=== PATIENT | female | born 1995 | race African-American/Black ===

== ENCOUNTER 2018-04-14 09:56 | Emergency (ER) | payer OTHER ==
[2018-04-14] MEDS ORDERED: DICYCLOMINE HCL 20 MG TABLET PO ONE (11:45)
--- NOTE | 2018-04-14 11:45 | ER Document Report ---
ED Medical Screen (RME) - General Chief Complaint: Abdominal Pain Stated Complaint: ABDOMINAL PAIN Time Seen by Provider: 04/14/18 11:35 Notes: 23-year-old female patient reports a 3-year history of lower abdominal pain, cramps, bloating, and occasional diarrhea. States she has been seen in the emergency room at [facility] multiple times and never been told what is wrong. She saw an [employer] doctor that told her it may be polycystic ovaries. She denies ever being told that it is most likely irritable bowel syndrome. I have greeted and performed a rapid initial assessment of this patient. A comprehensive ED assessment and evaluation of the patient, analysis of test results and completion of the medical decision making process will be conducted by additional ED providers. TRAVEL OUTSIDE OF THE [place] IN LAST 30 DAYS: No - Related Data Allergies/Adverse Reactions: No Known Allergies Allergy (Unverified 07/04/15 06:22) Past Medical History - Social History Chew tobacco use (# tins/day): No Frequency of alcohol use: None Drug Abuse: None Renal/ Medical History: Denies: Hx Peritoneal Dialysis Psychiatric Medical History: Reports: Hx Bipolar Disorder Physical Exam - Vital signs Vitals: Temp Pulse Resp BP Pulse Ox 98.3 F 108 H 18 142/75 H 98 04/14/18 10:21 04/14/18 10:21 04/14/18 10:21 04/14/18 10:21 04/14/18 10:21 Course - Vital Signs Vital signs: Temp Pulse Resp BP Pulse Ox 98.3 F 108 H 18 142/75 H 98 04/14/18 10:21 04/14/18 10:21 04/14/18 10:21 04/14/18 10:21 04/14/18 10:21
[2018-04-14 12:32] LABS: ABSOLUTE EOSINOPHILS # (AUTO) 0.3 10^3/uL (0.0-0.6); ABSOLUTE LYMPHOCYTES (AUTO) 2.2 10^3/uL (0.5-4.7); ABSOLUTE MONOCYTES (AUTO) 0.7 10^3/uL (0.1-1.4); ABSOLUTE NEUT (AUTO) 7.4 10^3/uL (1.7-8.2); APPEARANCE,URINE SLIGHTLY-CLOUDY; BASOPHILS % (AUTO) 0.3 % (0-2); BILIRUBIN,URINE NEGATIVE (NEGATIVE); COLOR,URINE YELLOW; EOSINOPHILS % (AUTO) 2.8 % (0-6); GLUCOSE, URINE 50 mg/dL (NEGATIVE); HEMATOCRIT 38.2 % (36.0-47.0); HEMOGLOBIN 12.6 g/dL (12.0-15.5); KETONES,URINE NEGATIVE (NEGATIVE); LEUKOCYTE ESTERASE,URINE MODERATE (NEGATIVE); LYMPHOCYTES % (AUTO) 20.7 % (13-45); MEAN CORPUSCULAR HEMOGLOBIN 27.4 pg (27.0-33.4); MEAN CORPUSCULAR HGB CONC 33.1 g/dL (32.0-36.0); MEAN CORPUSCULAR VOLUME 83 fl (80-97); MONOCYTES % (AUTO) 6.5 % (3-13); NITRITE,URINE NEGATIVE (NEGATIVE); PLATELET COUNT 323 10^3/uL (150-450); PROTEIN,URINE NEGATIVE (NEGATIVE); RED BLOOD COUNT 4.61 10^6/uL (3.72-5.28); SEGMENTED NEUTROPHILS % (AUTO) 69.7 % (42-78); TOTAL CELLS COUNTED % (AUTO) 100 %; URINE SPECIFIC GRAVITY 1.014; UROBILINOGEN,URINE NEGATIVE mg/dL (<2.0); WHITE BLOOD COUNT 10.6 10^3/uL (4.0-10.5)
[2018-04-14 12:56] LABS: ALANINE AMINOTRANSFERASE 37 U/L (9-52); ALBUMIN 4.4 g/dL (3.5-5.0); ALKALINE PHOSPHATASE 95 U/L (38-126); ANION GAP 8 (5-19); ASPARTATE AMINO TRANSFERASE 26 U/L (14-36); BILIRUBIN,DIRECT 0.2 mg/dL (0.0-0.4); BILIRUBIN,TOTAL 0.3 mg/dL (0.2-1.3); BLOOD UREA NITROGEN 13 mg/dL (7-20); CALCIUM 9.5 mg/dL (8.4-10.2); CARBON DIOXIDE 31 mmol/L (22-30); CHLORIDE 104 mmol/L (98-107); GLUCOSE 133 mg/dL (75-110); POTASSIUM 4.1 mmol/L (3.6-5.0); SODIUM 143.4 mmol/L (137-145); TOTAL PROTEIN 7.3 g/dL (6.3-8.2)
--- NOTE | 2018-04-14 13:50 | ER Document Report ---
ED GI/ - General Chief Complaint: Abdominal Pain Stated Complaint: ABDOMINAL PAIN Time Seen by Provider: 04/14/18 11:35 Information source: Patient Notes: Patient is a 23-year-old female who states that she has had some intermittent upper abdominal discomfort for a few years. She states worse over the last 6 months. She denies any radiation. She states that it is intermittent slightly exacerbated by food. She states nausea without vomiting or fevers. She states she has not had a menstrual period in greater than 1 year but is not sexually active. She denies any dysuria or vaginal discharge. She states she was told in the past that she had "irritable bowel syndrome". TRAVEL OUTSIDE OF THE [place] IN LAST 30 DAYS: No - HPI Patient complains to provider of: Other - See above Onset: Other Timing/Duration: Gradual Quality of pain: Achy Severity at maximum: Mild Severity in ED: Mild Pain Level: 1 Location: Other - See above Vaginal bleeding (Compared to normal period): None Associated symptoms: Other - See above Exacerbated by: Denies Relieved by: Denies Similar symptoms previously: No Recently seen / treated by doctor: No - Related Data Allergies/Adverse Reactions: No Known Allergies Allergy (Unverified 07/04/15 06:22) Past Medical History - Social History Smoking Status: Never Smoker Chew tobacco use (# tins/day): No Frequency of alcohol use: None Drug Abuse: None Family History: Reviewed & Not Pertinent, Other - unknown Patient has suicidal ideation: No Patient has homicidal ideation: No Renal/ Medical History: Denies: Hx Peritoneal Dialysis Psychiatric Medical History: Reports: Hx Bipolar Disorder Review of Systems - Review of Systems Constitutional: denies: Fever EENT: denies: Eye discharge, Nose discharge Cardiovascular: denies: Chest pain Respiratory: denies: Short of breath Gastrointestinal: denies: Vomiting Genitourinary: denies: Dysuria Musculoskeletal: denies: Leg swelling Skin: denies: Rash Neurological/Psychological: Other - no slurred speech -: Yes All other systems reviewed and negative Physical Exam - Vital signs Vitals: Temp Pulse Resp BP Pulse Ox 98.3 F 108 H 18 142/75 H 98 04/14/18 10:21 04/14/18 10:21 04/14/18 10:21 04/14/18 10:21 04/14/18 10:21 Notes: Reviewed vital signs and nursing note as charted by RN. CONSTITUTIONAL: Alert and oriented and responds appropriately to questions. Well-appearing; well-nourished HEAD: Normocephalic; atraumatic EYES: Sclerae non-icteric ENT: Normal nose; no rhinorrhea; moist mucous membranes; pharynx without lesions noted NECK: Supple without meningismus; non-tender; no cervical lymphadenopathy, no masses CARD: Regular rate and rhythm; no murmurs; symmetric distal pulses RESP: Normal chest excursion without splinting or tachypnea; breath sounds clear and equal bilaterally ABD/GI: Normal bowel sounds; non-distended; soft, mildly tender to palpation without rebound or guarding to the epigastric region. No lower abdominal tenderness at this time BACK: The back appears normal and is non-tender to palpation EXT: Normal ROM in all joints; non-tender to palpation; no edema SKIN: No acute lesions noted NEURO: CN 2-12 intact; 5/5 bilateral upper and lower extremity strength with sensation intact to light touch PSYCH: The patient's mood and manner are appropriate. Grooming and personal hygi skip are appropriate. Course - Re-evaluation Re-evalutation: 04/14/18 13:51 Given the above history and physical examination with the length of symptomatology, with no lower abdominal symptoms at this moment, I do believe ovarian torsion or pathology to be unlikely at this moment. I will obtain basic labs, liver panel and lipase, and obtain a right upper quadrant ultrasound as well as a pelvic examination. 04/14/18 16:46 Initial labs as recorded. Urine analysis as recorded. is negative. Ultrasound shows no obvious gallbladder pathology. No change in exam. On pelvic examination the patient has no obvious external or internal lesions. No cervical motion tenderness or adnexal masses or tenderness. 04/14/18 17:47 On repeat examination, patient's pain is improved. Vital signs are stable. Wet prep as recorded. Patient refuses any recent repeat swabbing. GC/Chlamydia are pending. Patient will be discharged home with strict return precautions, cultures pending, and started on a course of Keflex. - Vital Signs Vital signs: Temp Pulse Resp BP Pulse Ox 98.3 F 108 H 18 142/75 H 98 04/14/18 10:21 04/14/18 10:21 04/14/18 10:21 04/14/18 10:21 04/14/18 10:21 - Laboratory Result Diagrams: 04/14/18 11:57 04/14/18 11:57 Laboratory results interpreted by me: 04/14/18 04/14/18 04/14/18 11:57 11:57 11:57 WBC 10.6 H RDW 15.0 H Carbon Dioxide 31 H Glucose 133 H Urine Glucose (UA) 50 H Ur Leukocyte Esterase MODERATE H Discharge - Discharge Clinical Impression: Abdominal pain Qualifiers: Abdominal location: unspecified location Qualified Code(s): R10.9 - Unspecified abdominal pain UTI (urinary tract infection) Qualifiers: Urinary tract infection type: acute cystitis Hematuria presence: without hematuria Qualified Code(s): N30.00 - Acute cystitis without hematuria Condition: Good Disposition: HOME, SELF-CARE Additional Instructions: Come back immediately for any return of pain, worsening pain, change in location or quality of pain, fevers or vomiting, or any other acute problems. Please make sure that she follow-up with your primary care physician for reassessment and for the analysis of the urine culture. Prescriptions: Cephalexin Monohydrate [Keflex 500 mg Capsule] 500 mg PO Q6H 5 Days capsule
--- NOTE | 2018-04-14 15:41 | RADIOLOGY REPORT (SQ) ---
EXAM DESCRIPTION: U/S ABDOMEN LIMITED W/O DOP COMPLETED DATE/TIME: 04/14/2018 3:12 pm REASON FOR STUDY: 3hw, epigastric and RUQ pain COMPARISON: None. TECHNIQUE: Dynamic and static grayscale images acquired of the abdomen and recorded on PACS. Additio nal selected color Doppler and spectral images recorded. LIMITATIONS: Large body habitus, limited acoustic window FINDINGS: PANCREAS: Not visualized LIVER: Diffusely echogenic and difficult to penetrate with the ultrasound energy from fatty infiltrat ion LIVER VASCULATURE: Normal directional flow of the main portal vein and hepatic veins. GALLBLADDER: Very difficult to visualize. No gross gallstones. No gross gallbladder wall thickening or pericholecystic fluid ULTRASOUND-DETECTED CHATMAN'S SIGN: Negative. INTRAHEPATIC DUCTS AND COMMON DUCT: Not well seen INFERIOR VENA CAVA: Not visualized AORTA: Not visualized RIGHT KIDNEY: Normal size. Normal echogenicity. No solid or suspicious masses. No hydronephrosis. No calcifications. PERITONEAL AND RIGHT PLEURAL SPACE: No ascites or effusions. OTHER: No other significant findings. IMPRESSION: Very limited study due to patient body habitus. No gross evidence of gallstones TECHNICAL DOCUMENTATION: JOB ID: [id number] [employer]- All Rights Reserved Reading location - IP/workstation name: [email or web address]
[2018-04-14 16:54] LABS: BACTERIA (WET MOUNT) 3+ BACTERIA SEEN; EPITHELIALS (WET MOUNT) 3+ EPITHELIALS SEEN; RBCS (WET MOUNT) RARE RBCS SEEN; T.VAGINALIS (WET MOUNT) COULD NOT PERFORM; WBCS (WET MOUNT) 1+ WBCS SEEN; YEAST (WET MOUNT) NO YEAST SEEN
[2018-04-14] MEDS ORDERED: CEPHALEXIN 500 MG CAPSULE PO ONE (17:48)
[2018-04-14 18:04] VITALS: BP 134/85
[2018-04-14 18:24] LABS: CHLAM PCR NOT DETECTED (NOT DETECT); GON PCR NOT DETECTED (NOT DETECT)
== END 2018-04-14 18:03 | disposition home or self-care (01) ==
LOC: ER 09:56
DX: N30.00 Acute cystitis without hematuria (principal); R10.10 Upper abdominal pain, unspecified; R10.813 Right lower quadrant abdominal tenderness; R11.0 Nausea
CPT/HCPCS: 99284; 36415; 87086; 87210; 84703; 85025; 80053; 81001; 87491; 87591; 76705; J3490

== ENCOUNTER 2018-07-13 15:23 | Emergency (ER) | payer MEDICAID ==
[2018-07-13 16:39] VITALS: BP 124/82
[2018-07-13] MEDS ORDERED: NORMAL SALINE 1000 ML 1,000 ML IV ONE (18:20)
[2018-07-13] MEDS ORDERED: ACETAMINOPHEN 325 MG TABLET PO ONE (18:20)
[2018-07-13] MEDS ORDERED: DIPHENHYDRAMINE HCL 50 MG/ML VIAL IV ONE (18:20)
[2018-07-13] MEDS ORDERED: METOCLOPRAMIDE HCL INJ/PF 10 MG/2 ML SDV IV ONE (18:20)
--- NOTE | 2018-07-13 18:30 | ER Document Report ---
ED General - General Chief Complaint: Headache Stated Complaint: NAUSEA Time Seen by Provider: 07/13/18 17:19 Mode of Arrival: Ambulatory Information source: Patient TRAVEL OUTSIDE OF THE [place] IN LAST 30 DAYS: No - HPI Patient complains to provider of: Headaches off and on, nausea, stomachache Onset: Other - Last couple of days Onset/Duration: Constant Quality of pain: Pressure, Throbbing Severity: Severe Pain Level: 4 Associated symptoms: Nausea. denies: Chills, Diarrhea, Fever, Vomiting Exacerbated by: Denies Relieved by: Denies Similar symptoms previously: No Recently seen / treated by doctor: No Notes: 23-year-old -[place] female coming in today with complaints of nausea, frontal headaches, and stomach aches. She recently diagnosed with diabetes type 2. She has been out of her metformin for couple weeks. She thinks her sugars are the cause of her symptoms. She is not throwing up. She is not short of breath. - Related Data Allergies/Adverse Reactions: No Known Allergies Allergy (Unverified 07/04/15 06:22) Past Medical History - General Information source: Patient - Social History Smoking Status: Never Smoker Chew tobacco use (# tins/day): No Frequency of alcohol use: None Drug Abuse: None Family History: Reviewed & Not Pertinent, Other - unknown Patient has suicidal ideation: No Patient has homicidal ideation: No Renal/ Medical History: Denies: Hx Peritoneal Dialysis Psychiatric Medical History: Reports: Hx Bipolar Disorder Review of Systems - Review of Systems Notes: Constitutional: No fevers. No chills. EENT: No eye redness. No eye pain. No ear pain. No sore throat. Cardiovascular: No chest pain. No palpitations. Respiratory: No cough. No shortness of breath. No respiratory distress. Gastrointestinal: Positive for nausea Genitourinary: Atraumatic. No lesions. No pain. No discharge. Musculoskeletal: Atraumatic. No swelling. No deformities. Skin: No rash or lesions. Lymphatic: No swollen lymph nodes. Neurologic: Positive for headache Psychiatric: No suicidal or homicidal ideation. Physical Exam - Vital signs Vitals: Temp Pulse Resp BP Pulse Ox 97.9 F 117 H 16 124/82 95 07/13/18 16:37 07/13/18 16:37 07/13/18 16:37 07/13/18 16:37 07/13/18 16:37 - Notes Notes: General: Well-developed, well-nourished. In no acute distress. Non-toxic appearing. Cardiac: Well-perfused. Regular rate and rhythm. No murmurs, rubs, or gallops. Pulmonary: No respiratory distress. No cyanosis. Bilateral lung fiels are clear to auscultation. Abdominal: Non-distended. Non-rigid. Bowels sounds are present in all four quadrants. No guarding or rebound. HEENT: Head is atraumatic. Conjunctivae not reddened. No tearing. PERRL. EOMI. Orbits atraumatic. No periorbital swelling or erythema. Oropharynx is without erythema, swelling, or exudates. Neck: Supple. No adenopathy. No meningismus. Dermatologic: Warm with good turgor. No rash. Atraumatic. Chest: Atraumatic. No chest wall tenderness to palpation. Musculoskeletal: Moves all extremities well. No range of motion deficits. no muscular or joint tenderness. No paraspinal muscle tenderness. no midline spinal tenderness or step-off. Genitourinary: Examination deferred Neurologic: No gross neurologic deficits. Psychiatric: Normal mood. Course - Re-evaluation Re-evalutation: Nursing staff has just placed the IV. Patient is now stating that there are pressing reasons for her to leave. She will not give any specific explanation. She notes that she is not unhappy or dissatisfied with her care but that she just "has to GO." Patient is made aware that she can return at any time she wishes. Unfortunately I was happened to check her electrolytes especially her sugar and check her kidney functions. She will sign the appropriate paperwork a nd will leave AMA. Kye Coma Scale 15 out of 15 - Vital Signs Vital signs: Temp Pulse Resp BP Pulse Ox 97.9 F 117 H 16 124/82 95 07/13/18 16:37 07/13/18 16:37 07/13/18 16:37 07/13/18 16:37 07/13/18 16:37 - Laboratory Result Diagrams: 07/13/18 18:40 07/13/18 18:40 Laboratory results interpreted by me: 07/13/18 18:40 WBC 16.5 H MCH 26.8 L RDW 14.7 H Absolute Neutrophils 11.2 H Discharge - Discharge Clinical Impression: History of diabetes mellitus Headache Qualifiers: Headache type: unspecified Headache chronicity pattern: unspecified pattern Intractability: not intractable Qualified Code(s): R51 - Headache Condition: Good Disposition: AGAINST MEDICAL ADVICE
[2018-07-13 18:51] LABS: ABSOLUTE BASOPHILS # (AUTO) 0.1 10^3/uL (0.0-0.2); ABSOLUTE EOSINOPHILS # (AUTO) 0.3 10^3/uL (0.0-0.6); ABSOLUTE LYMPHOCYTES (AUTO) 3.8 10^3/uL (0.5-4.7); ABSOLUTE NEUT (AUTO) 11.2 10^3/uL (1.7-8.2); BASOPHILS % (AUTO) 0.8 % (0-2); EOSINOPHILS % (AUTO) 1.8 % (0-6); HEMATOCRIT 39.9 % (36.0-47.0); HEMOGLOBIN 12.9 g/dL (12.0-15.5); LYMPHOCYTES % (AUTO) 22.9 % (13-45); MEAN CORPUSCULAR HEMOGLOBIN 26.8 pg (27.0-33.4); MEAN CORPUSCULAR HGB CONC 32.4 g/dL (32.0-36.0); MEAN CORPUSCULAR VOLUME 83 fl (80-97); MONOCYTES % (AUTO) 6.3 % (3-13); PLATELET COUNT 376 10^3/uL (150-450); RED BLOOD COUNT 4.82 10^6/uL (3.72-5.28); RED CELL DISTRIBUTION WIDTH 14.7 % (11.5-14.0); SEGMENTED NEUTROPHILS % (AUTO) 68.2 % (42-78); TOTAL CELLS COUNTED % (AUTO) 100 %; WHITE BLOOD COUNT 16.5 10^3/uL (4.0-10.5)
[2018-07-13 18:55] LABS: AMORPHOUS SEDIMENT,URINE TRACE /HPF; APPEARANCE,URINE SLIGHTLY-CLOUDY; BILIRUBIN,URINE NEGATIVE (NEGATIVE); COLOR,URINE YELLOW; GLUCOSE, URINE NEGATIVE (NEGATIVE); KETONES,URINE NEGATIVE (NEGATIVE); LEUKOCYTE ESTERASE,URINE NEGATIVE (NEGATIVE); NITRITE,URINE NEGATIVE (NEGATIVE); PROTEIN,URINE NEGATIVE (NEGATIVE); URINE SPECIFIC GRAVITY 1.017; UROBILINOGEN,URINE NEGATIVE mg/dL (<2.0)
[2018-07-13 19:14] LABS: ALANINE AMINOTRANSFERASE 37 U/L (9-52); ALBUMIN 4.4 g/dL (3.5-5.0); ALKALINE PHOSPHATASE 99 U/L (38-126); ANION GAP 12 (5-19); ASPARTATE AMINO TRANSFERASE 27 U/L (14-36); BILIRUBIN,DIRECT 0.3 mg/dL (0.0-0.4); BILIRUBIN,TOTAL 0.7 mg/dL (0.2-1.3); BLOOD UREA NITROGEN 12 mg/dL (7-20); CALCIUM 9.9 mg/dL (8.4-10.2); CARBON DIOXIDE 30 mmol/L (22-30); CHLORIDE 99 mmol/L (98-107); GLUCOSE 77 mg/dL (75-110); POTASSIUM 4.7 mmol/L (3.6-5.0); TOTAL PROTEIN 7.8 g/dL (6.3-8.2)
== END 2018-07-13 18:53 | disposition left against medical advice (07) ==
LOC: ER 15:23
DX: R51 Headache (principal); R11.0 Nausea; R10.9 Unspecified abdominal pain; E11.9 Type 2 diabetes mellitus without complications; Z79.84 Long term (current) use of oral hypoglycemic drugs
CPT/HCPCS: 99284; 96374; 96375; 36415; 85025; 81025; 80053; 81001; J3490; J1200; J2765; J7030

== ENCOUNTER 2018-07-27 23:43 | Emergency (ER) | payer MEDICAID ==
[2018-07-28] MEDS ORDERED: NORMAL SALINE 1000 ML 1,000 ML IV ONE (03:43)
--- NOTE | 2018-07-28 03:58 | ER Document Report ---
ED General - General Chief Complaint: Headache Stated Complaint: HEADACHE Time Seen by Provider: 07/28/18 03:29 Notes: Patient is a 23-year-old female that comes to the emergency department for general complaints. She states she had a headache earlier but this almost resolved, she states she has been achy over her body including a slight dis comfort in her chest, she states she also thinks that she is dehydrated but did not drink much today, and feels like she "needs fluids". She reports a history of type 2 diabetes, on metformin, also has a history of bipolar disorder. TRAVEL OUTSIDE OF THE [place] IN LAST 30 DAYS: No - Related Data Allergies/Adverse Reactions: No Known Allergies Allergy (Unverified 07/04/15 06:22) Past Medical History - General Information source: Patient - Social History Smoking Status: Never Smoker Frequency of alcohol use: None Drug Abuse: None Lives with: Family Family History: Reviewed & Not Pertinent, Other - unknown Renal/ Medical History: Denies: Hx Peritoneal Dialysis Psychiatric Medical History: Reports: Hx Bipolar Disorder - Immunizations Immunizations up to date: Yes Hx Diphtheria, Pertussis, Tetanus Vaccination: Yes Review of Systems - Review of Systems Constitutional: See HPI EENT: No symptoms reported Cardiovascular: See HPI Respiratory: See HPI Gastrointestinal: No symptoms reported Genitourinary: No symptoms reported Female Genitourinary: No symptoms reported Musculoskeletal: See HPI Skin: No symptoms reported Hematologic/Lymphatic: No symptoms reported Neurological/Psychological: No symptoms reported Physical Exam - Vital signs Vitals: Temp Pulse Resp BP Pulse Ox 98.9 F 106 H 16 143/74 H 97 07/28/18 00:00 07/28/18 00:00 07/28/18 00:00 07/28/18 00:00 07/28/18 00:00 - Notes Notes: GENERAL: Sleeping but easily aroused HEAD: Normocephalic, atraumatic. EYES: Pupils equal, round, and reactive to light. Extraocular movements intact. ENT: Oral mucosa dry, tongue midline. Oropharynx unremarkable. Airway patent. NECK: Full range of motion. Supple. Trachea midline. LUNGS: Clear to auscultation bilaterally, no wheezes, rales, or rhonchi. No re spiratory distress. HEART: Borderline tachycardia, normal rhythm, no murmur ABDOMEN: Soft, non-tender. Non-distended. Bowel sounds present in all 4 quadrants. GENITOURINARY: Deferred EXTREMITIES: Moves all 4 extremities spontaneously. No edema, normal radial and dorsalis pedis pulses bilaterally. No cyanosis. BACK: no cervical, thoracic, lumbar midline tenderness. No saddle anesthesia, normal distal neurovascular exam. NEUROLOGICAL: Alert and oriented x3. Normal speech. cranial nerves II through XII grossly intact. PSYCH: Normal affect, normal mood. SKIN: Warm, dry, normal turgor. No rashes or lesions noted. Course - Re-evaluation Re-evalutation: Patient sleeping but easily aroused. She has very vague complaints. Has dry mucous membranes, complaining that she feels dry, was borderline tachycardic. This resolved after IV fluids. EKG and chest x-ray unremarkable. CBC, chemistry unremarkable. hCG is negative. Patient with no concerning findings on physical exam. She has very vague complaints, no current headache, no current pain other than feeling tired and achy. Could be viral, I do not suspect pulmonary embolism, infection, concerning headache. On reevaluation patient has had IV fluids, states she is ready to go home. Discussed follow-up and return precautions. Patient states understanding and agreement. - Vital Signs Vital signs: Temp Pulse Resp BP Pulse Ox 97.6 F 89 19 142/90 H 95 07/28/18 06:10 07/28/18 06:10 07/28/18 06:10 07/28/18 06:10 07/28/18 06:10 - Laboratory Result Diagrams: 07/28/18 04:02 07/28/18 04:02 Laboratory results interpreted by me: 07/28/18 07/28/18 04:02 04:02 WBC 12.3 H Hgb 11.7 L MCH 26.3 L MCHC 31.7 L RDW 14.8 H Glucose 126 H - EKG Interpretation by Me Additional EKG results interpreted by me: EKG shows sinus rhythm at a rate of 96, no T wave inversions or ST segment changes in consecutive leads, QTC is 476, ME interval is 164. Discharge - Discharge Clinical Impression: Body aches, Tiredness Headache Qualifiers: Headache type: unspecified Headache chronicity pattern: acute headache Intracta bility: not intractable Qualified Code(s): R51 - Headache Condition: Stable Disposition: HOME, SELF-CARE Additional Instructions: Your work-up does not show any concerning findings. You have been rehydrated. Rest, take [id number] anti-inflammatory such as ibuprofen or naproxen for body aches. It is possible you have a viral syndrome which takes time to resolve. Follow-up with primary care. Return if you worsen including difficulty breathing, vomiting, fever, passing out, or any other concerning or worsening symptoms.
[2018-07-28 04:18] LABS: ABSOLUTE BASOPHILS # (AUTO) 0.1 10^3/uL (0.0-0.2); ABSOLUTE EOSINOPHILS # (AUTO) 0.4 10^3/uL (0.0-0.6); ABSOLUTE LYMPHOCYTES (AUTO) 2.8 10^3/uL (0.5-4.7); ABSOLUTE NEUT (AUTO) 8.1 10^3/uL (1.7-8.2); BASOPHILS % (AUTO) 0.5 % (0-2); EOSINOPHILS % (AUTO) 3.3 % (0-6); HEMATOCRIT 36.8 % (36.0-47.0); HEMOGLOBIN 11.7 g/dL (12.0-15.5); LYMPHOCYTES % (AUTO) 22.3 % (13-45); MEAN CORPUSCULAR HEMOGLOBIN 26.3 pg (27.0-33.4); MEAN CORPUSCULAR HGB CONC 31.7 g/dL (32.0-36.0); MEAN CORPUSCULAR VOLUME 83 fl (80-97); MONOCYTES % (AUTO) 8.3 % (3-13); PLATELET COUNT 307 10^3/uL (150-450); RED BLOOD COUNT 4.45 10^6/uL (3.72-5.28); RED CELL DISTRIBUTION WIDTH 14.8 % (11.5-14.0); SEGMENTED NEUTROPHILS % (AUTO) 65.6 % (42-78); TOTAL CELLS COUNTED % (AUTO) 100 %; WHITE BLOOD COUNT 12.3 10^3/uL (4.0-10.5)
[2018-07-28 04:35] LABS: ANION GAP 9 (5-19); BLOOD UREA NITROGEN 13 mg/dL (7-20); CALCIUM 9.3 mg/dL (8.4-10.2); CARBON DIOXIDE 30 mmol/L (22-30); CHLORIDE 103 mmol/L (98-107); GLUCOSE 126 mg/dL (75-110); POTASSIUM 4.2 mmol/L (3.6-5.0); SODIUM 142.3 mmol/L (137-145)
--- NOTE | 2018-07-28 04:36 | RADIOLOGY REPORT (SQ) ---
EXAM DESCRIPTION: XR CHEST 1 VIEW COMPLETED DATE/TME: 07/28/2018 03:43 CLINICAL HISTORY: 23 years, Female, chest pain COMPARISON: None. NUMBER OF VIEWS: One TECHNIQUE: AP view of the chest LIMITATIONS: None. FINDINGS: Lungs are clear. The heart is normal in size. There is no pneumothorax or pleural effusion. There is no acute fracture. IMPRESSION: No acute cardiopulmonary abnormality copyright 2010 [employer]- All Rights Reserved
[2018-07-28 06:20] VITALS: BP 142/90
--- NOTE | 2018-07-28 07:55 | EKG REPORT ---
SEVERITY:- BORDERLINE ECG - SINUS RHYTHM BORDERLINE PROLONGED QT INTERVAL : Confirmed by: Geeta Castillo MD 28-Jul-2018 07:54:14
== END 2018-07-28 06:20 | disposition home or self-care (01) ==
LOC: ER 23:43
DX: M79.10 Myalgia, unspecified site (principal); R53.83 Other fatigue; R51 Headache; E11.9 Type 2 diabetes mellitus without complications; Z79.84 Long term (current) use of oral hypoglycemic drugs
CPT/HCPCS: 93005; 99284; 36415; 84703; 85025; 80048; 71045; 93010; J7030

== ENCOUNTER 2018-12-03 21:21 | Emergency (ER) | payer MEDICAID ==
[2018-12-03 22:15] VITALS: BP 141/53
--- NOTE | 2018-12-04 01:22 | ER Document Report ---
ED ENT - General Chief Complaint: Sore Throat Stated Complaint: SORE THROAT, DRAINAGE Time Seen by Provider: 12/04/18 00:51 Mode of Arrival: Ambulatory Information source: Patient TRAVEL OUTSIDE OF THE [place] IN LAST 30 DAYS: No - HPI Notes: Patient presents with bilateral throat pain. Is worse with swallowing and better when she does not swallow. It is moderate and constant in intensity. She also has some sinus congestion. She has no trouble breathing. She has had a dry cough. No fevers sweats or chills. No vomiting or diarrhea. - Related Data Allergies/Adverse Reactions: No Known Allergies Allergy (Verified 12/03/18 21:25) Past Medical History - General Information source: Patient - Social History Smoking Status: Never Smoker Frequency of alcohol use: None Drug Abuse: None Family History: Reviewed & Not Pertinent, Other - unknown Endocrine Medical History: Reports: Hx Diabetes Mellitus Type 2 Renal/ Medical History: Denies: Hx Peritoneal Dialysis Psychiatric Medical History: Reports: Hx Bipolar Disorder - Immunizations Immunizations up to date: Yes Hx Diphtheria, Pertussis, Tetanus Vaccination: Yes Review of Systems - Review of Systems Constitutional: denies: Chills, Fever Cardiovascular: denies: Chest pain, Dyspnea Respiratory: Cough. denies: Short of breath Gastrointestinal: denies: Diarrhea, Vomiting Physical Exam - Vital signs Vitals: Temp Pulse Resp BP Pulse Ox 97.6 F 71 18 141/53 H 97 12/03/18 22:13 12/03/18 22:13 12/03/18 22:13 12/03/18 22:13 12/03/18 22:13 Interpretation: Normal - General General appearance: Appears well, Alert - HEENT Head: Normocephalic, Atraumatic Eyes: Normal Pupils: PERRL Sinus: Normal Nasal: Swelling, Clear rhinorrhea Mouth/Lips: Normal Mucous membranes: Moist Pharynx: Erythema, Tonsillar hypertrophy. No: Exudate Neck: Normal - Respiratory Respiratory status: No respiratory distress Chest status: Nontender Breath sounds: Normal Chest palpation: Normal - Cardiovascular Rhythm: Regular Heart sounds: Normal auscultation Murmur: No - Extremities General upper extremity: Normal inspection, Nontender, Normal color, Normal ROM, Normal temperature General lower extremity: Normal inspection, Nontender, Normal color, Normal ROM, Normal temperature, Normal weight bearing. No: Yulissa's sign - Psychological Associated symptoms: Normal affect, Normal mood - Skin Skin Temperature: Warm Skin Moisture: Dry Skin Color: Normal Course - Vital Signs Vital signs: Temp Pulse Resp BP Pulse Ox 97.6 F 71 18 141/53 H 97 12/03/18 22:13 12/03/18 22:13 12/03/18 22:13 12/03/18 22:13 12/03/18 22:13 Discharge - Discharge Clinical Impression: Tonsillitis Condition: Stable Disposition: HOME, SELF-CARE Instructions: Tonsillitis ([facility]) Additional Instructions: Please call your primary care doctor first thing in the morning to arrange fol low-up Prescriptions: Amoxicillin 1 tab PO TID #30 tab Tramadol HCl [Ultram] 50 mg PO Q6 PRN 3 Days #12 tablet PRN Reason: Referrals: SHIRAZ MARTIN MD [ACTIVE STAFF] - Follow up in 3-5 days
[2018-12-04] MEDS ORDERED: TRAMADOL HCL 50 MG TABLET PO ONE (01:23)
[2018-12-04] MEDS ORDERED: AMOXICILLIN TRIHYDRATE 500 MG CAPSULE PO ONE (01:23)
== END 2018-12-04 02:40 | disposition home or self-care (01) ==
LOC: ER 21:21
DX: J03.90 Acute tonsillitis, unspecified (principal); E11.9 Type 2 diabetes mellitus without complications
CPT/HCPCS: 87070; 87880

== ENCOUNTER 2019-01-21 18:35 | Emergency (ER) | payer MEDICAID ==
--- NOTE | 2019-01-21 20:58 | ER Document Report ---
ED General - General Chief Complaint: Cough Stated Complaint: SHORTNESS OF BREATH Time Seen by Provider: 01/21/19 20:36 Notes: Patient is a 23-year-old female who presents to the emergency department with a positive TB test per the urgent care that gave it to her. She came here to the emergency department to be evaluated. Patient had her TB test 2 days ago. Had it rechecked at the urgent care and was told to come here to the emergency de partment. Patient states that she has sensitive skin and has been lifting boxes. She states that she could have irritated the area. Although the nursing staff reports the patient has shortness of breath, chest pain, exertional shortness of breath, the patient denies all of these things to me. Patient adamantly denies any chest pain, shortness of breath, or difficulty breathing. She adamantly denies any cough. Denies any travel outside the [place]. Patient states that she is prediabetic and she is supposed to be on metformin but is not currently on metformin at this time. TRAVEL OUTSIDE OF THE [place] IN LAST 30 DAYS: No - Related Data Allergies/Adverse Reactions: No Known Allergies Allergy (Verified 12/03/18 21:25) Past Medical History - Social History Smoking Status: Unknown if Ever Smoked Family History: Reviewed & Not Pertinent, Other - unknown Patient has suicidal ideation: No Patient has homicidal ideation: No Endocrine Medical History: Reports: Hx Diabetes Mellitus Type 2 Renal/ Medical History: Denies: Hx Peritoneal Dialysis Psychiatric Medical History: Reports: Hx Bipolar Disorder - Immunizations Immunizations up to date: Yes Hx Diphtheria, Pertussis, Tetanus Vaccination: Yes Review of Systems - Review of Systems Notes: REVIEW OF SYSTEMS: CONSTITUTIONAL : Denies recent illness. Denies recent unintentional weight loss. Denies fever, chills, or sweats. EENT: Denies eye, ear, throat, or mouth pain, discharge, or symptoms. Denies nasal or sinus congestion. CARDIOVASCULAR: Denies any chest pain. RESPIRATORY: Denies shortness of breath, cough, congestion, difficulty breathing, or wheezing. GASTROINTESTINAL: Denies nausea, vomiting, and diarrhea. Denies abdominal pain. Denies constipation. GENITOURINARY: Denies difficulty urinating, burning, blood in urine, urgency or frequency. MUSCULOSKELETAL: Denies neck and back pain. Denies joint pain or swelling. SKIN: See HPI. HEMATOLOGIC : Denies easy bruising or bleeding. LYMPHATIC: Denies swollen, painful, enlarged glands. NEUROLOGICAL: Denies no numbness or tingling denies weakness. Denies headache. Denies altered mental status. Denies alteration in speech. PSYCHIATRIC: Denies stress, anxiety, alteration in sleep patterns, or depression. All other systems reviewed and negative. Physical Exam - Vital signs Vitals: Temp Pulse Resp BP Pulse Ox 98.1 F 96 16 149/80 H 99 01/21/19 18:54 01/21/19 18:54 01/21/19 18:54 01/21/19 18:54 01/21/19 18:54 - Notes Notes: PHYSICAL EXAMINATION: GENERAL: Appears morbidly obese, no acute distress. HEAD: Normocephalic, atraumatic. EYES: PERRL, conjunctiva normal, all extraocular movements intact, sclera nonicteric ENT: Moist mucous membranes. NECK: Supple, no noticeable swelling, redness, rash. Normal range of motion. LUNGS: Equal breath sounds bilaterally and clear to auscultation. No wheezes rales or rhonchi. CARDIOVASCULAR: S1-S2, regular rate, regular rhythm. Radial pulses 2+, normal. Reproducible chest pain upon palpation. ABDOMEN: Normoactive bowel sounds. Soft, nontender, no guarding, no rebound tenderness, and no masses palpated. EXTREMITIES: Normal strength and range of motion, no pitting or edema. No cyanosis. NEUROLOGICAL: Moves all extremities upon command. Strength 5/5 in all extremities. PSYCH: Normal mood, normal affect. SKIN: Warm, dry. No rash, lesions, ulcerations noted. Normal skin turgor. Course - Re-evaluation Re-evalutation: 01/21/19 23:19 Patient's chest x-ray does not show tuberculosis. Her PPD area was not raised. She does have some bruising to the area, but I suspect this is due to the way the PPD was placed. She also does have an enlarged heart. I talked to her about this and have advised her to make sure that she follows up with a primary care provider. Patient is also large breasted. I have very low suspicion for PE, tuberculosis, myocardial infarction, or any life-threatening etiology at this time. Patient stating that she would like and okay to go start work. Patient had reproducible chest pain upon palpation. I suspect this is due to her lifting boxes recently. I educated the patient on proper diet and exercise, as this will help her lose some weight. Follow-up precautions were given. Verbal discharge instructions were given to the patient. They verbalized understanding. They are stable for discharge. - Vital Signs Vital signs: Temp Pulse Resp BP Pulse Ox 98 F 92 18 137/76 H 97 01/21/19 23:40 01/21/19 23:40 01/21/19 23:40 01/21/19 23:40 01/21/19 23:40 - EKG Interpretation by Me Additional EKG results interpreted by me: 01/21/19 23:24 Sinus rhythm. Rate 96. CO 168; QRS 94; QT 360; QTc 455. No ST elevations or depressions noted Discharge - Discharge Clinical Impression: PPD negative Condition: Stable Disposition: HOME, SELF-CARE Additional Instructions: You were seen today in the emergency department to have your PPD checked. Your chest x-ray was normal. Your PPD was also normal.Please follow-up with a primary care provider in regards to this visit. Make sure you establish when this week. Please also have them refer you to a central service tech, as you have an enlarged heart. Your enlarged heart is due to your weight. Make sure you monitor which you eat and walk 30 minutes a day. Forms: Return to Work
--- NOTE | 2019-01-21 22:42 | RADIOLOGY REPORT (SQ) ---
EXAM DESCRIPTION: AP view of the chest CLINICAL HISTORY: 23 years Female, chest pain COMPARISON: None. FINDINGS: Borderline heart size. No suspicious mediastinal widening. No acute lung pleural bone abnormalities. IMPRESSION: Borderline heart size possibly exaggerated by fat.. No acute findings.
[2019-01-21 23:43] VITALS: BP 137/76
--- NOTE | 2019-01-22 09:35 | EKG REPORT ---
SEVERITY:- NORMAL ECG - SINUS RHYTHM : Confirmed by: Vivian Pinon 22-Jan-2019 09:34:49
== END 2019-01-21 23:40 | disposition home or self-care (01) ==
LOC: ER 18:35
DX: Z11.1 Encounter for screening for respiratory tuberculosis (principal); I51.7 Cardiomegaly; R73.03 Prediabetes; T38.3X6A Underdosing of insulin and oral hypoglycemic [antidiabetic] drugs, initial encounter; Z91.14 Patient's other noncompliance with medication regimen
CPT/HCPCS: 71045; 93005; 93010; 99285

== ENCOUNTER 2019-02-23 22:47 | Emergency (ER) | payer MEDICAID ==
[2019-02-23 22:59] VITALS: BP 139/78
== END 2019-02-24 01:17 | disposition left against medical advice (07) ==
LOC: ER 22:47
DX: Z53.21 Procedure and treatment not carried out due to patient leaving prior to being seen by health care provider (principal); R10.9 Unspecified abdominal pain

== ENCOUNTER 2019-02-25 17:19 | Emergency (ER) | payer MEDICAID ==
[2019-02-25] MEDS ORDERED: NORMAL SALINE 1000 ML 1,000 ML IV ONE (17:59)
--- NOTE | 2019-02-25 17:59 | ER Document Report ---
ED Medical Screen (RME) - General Chief Complaint: Abdominal Pain Stated Complaint: ABDOMINAL PAIN Time Seen by Provider: 02/25/19 17:56 Mode of Arrival: Ambulatory Information source: Patient Notes: Patient presents complaining of abdominal pain for the past 2 days. Patient states that pain yesterday was to the left lower quadrant but has since moved to the periumbilical area today. Patient denies any nausea vomiting or diarrhea. Patient does report some hematuria. I have greeted and performed a rapid initial assessment of this patient. A comprehensive ED assessment and evaluation of the patient, analysis of test results and completion of the medical decision making process will be conducted by additional ED providers. TRAVEL OUTSIDE OF THE [place] IN LAST 30 DAYS: No - Related Data Allergies/Adverse Reactions: No Known Allergies Allergy (Verified 02/25/19 17:55) Past Medical History - Social History Chew tobacco use (# tins/day): No Frequency of alcohol use: None Drug Abuse: None Endocrine Medical History: Reports: Hx Diabetes Mellitus Type 2 Renal/ Medical History: Denies: Hx Peritoneal Dialysis Psychiatric Medical History: Reports: Hx Bipolar Disorder - Immunizations Immunizations up to date: Yes Hx Diphtheria, Pertussis, Tetanus Vaccination: Yes Physical Exam - Vital signs Vitals: Temp Pulse Resp BP Pulse Ox 97.9 F 111 H 18 143/78 H 98 02/25/19 17:22 02/25/19 17:22 02/25/19 17:22 02/25/19 17:22 02/25/19 17:22 - Abdominal Tenderness: Tender - Periumbilical Course - Vital Signs Vital signs: Temp Pulse Resp BP Pulse Ox 97.9 F 111 H 18 143/78 H 98 02/25/19 17:55 02/25/19 17:22 02/25/19 17:55 02/25/19 17:22 02/25/19 17:55
[2019-02-25 18:59] LABS: ABSOLUTE BASOPHILS # (AUTO) 0.1 10^3/uL (0.0-0.2); ABSOLUTE EOSINOPHILS # (AUTO) 0.2 10^3/uL (0.0-0.6); ABSOLUTE LYMPHOCYTES (AUTO) 3.4 10^3/uL (0.5-4.7); ABSOLUTE MONOCYTES (AUTO) 1.1 10^3/uL (0.1-1.4); ABSOLUTE NEUT (AUTO) 12.3 10^3/uL (1.7-8.2); BASOPHILS % (AUTO) 0.5 % (0-2); EOSINOPHILS % (AUTO) 1.2 % (0-6); HEMATOCRIT 39.7 % (36.0-47.0); HEMOGLOBIN 13.1 g/dL (12.0-15.5); LYMPHOCYTES % (AUTO) 19.9 % (13-45); MEAN CORPUSCULAR HEMOGLOBIN 27.7 pg (27.0-33.4); MEAN CORPUSCULAR HGB CONC 33.1 g/dL (32.0-36.0); MEAN CORPUSCULAR VOLUME 84 fl (80-97); MONOCYTES % (AUTO) 6.4 % (3-13); PLATELET COUNT 380 10^3/uL (150-450); RED BLOOD COUNT 4.74 10^6/uL (3.72-5.28); RED CELL DISTRIBUTION WIDTH 14.1 % (11.5-14.0); TOTAL CELLS COUNTED % (AUTO) 100 %; WHITE BLOOD COUNT 17.1 10^3/uL (4.0-10.5)
[2019-02-25 19:06] LABS: APPEARANCE,URINE CLEAR; BILIRUBIN,URINE NEGATIVE (NEGATIVE); COLOR,URINE YELLOW; GLUCOSE, URINE NEGATIVE (NEGATIVE); KETONES,URINE NEGATIVE (NEGATIVE); LEUKOCYTE ESTERASE,URINE NEGATIVE (NEGATIVE); NITRITE,URINE NEGATIVE (NEGATIVE); PROTEIN,URINE NEGATIVE (NEGATIVE); URINE SPECIFIC GRAVITY 1.017
[2019-02-25 19:36] LABS: ALBUMIN 4.3 g/dL (3.5-5.0); ALKALINE PHOSPHATASE 104 U/L (38-126); ANION GAP 12 (5-19); ASPARTATE AMINO TRANSFERASE 21 U/L (14-36); BILIRUBIN,DIRECT 0.1 mg/dL (0.0-0.4); BILIRUBIN,TOTAL 0.6 mg/dL (0.2-1.3); BLOOD UREA NITROGEN 11 mg/dL (7-20); CALCIUM 9.5 mg/dL (8.4-10.2); CARBON DIOXIDE 26 mmol/L (22-30); CHLORIDE 104 mmol/L (98-107); GLUCOSE 82 mg/dL (75-110); POTASSIUM 4.3 mmol/L (3.6-5.0); TOTAL PROTEIN 7.8 g/dL (6.3-8.2)
[2019-02-25 20:39] LABS: CHLAM PCR NOT DETECTED (NOT DETECT)
--- NOTE | 2019-02-25 23:13 | ER Document Report ---
ED GI/ - General Chief Complaint: Abdominal Pain Stated Complaint: ABDOMINAL PAIN Time Seen by Provider: 02/25/19 17:56 Primary Care Provider: MAREK BURDEN MD [ACTIVE STAFF] - Follow up as needed Mode of Arrival: Ambulatory Notes: Patient is a 23-year-old female that comes emergency department for chief complaint of left lower abdominal pain and pelvic pain. Pain occasionally radiates up to the umbilicus area. She states this started yesterday, became more noticeable today. She denies nausea or vomiting, fever/chills, dysuria, vaginal discharge, flank pain. She states she has a history of PCOS, type 2 diabetes, bipolar disorder. She denies any abdominal surgeries. TRAVEL OUTSIDE OF THE [place] IN LAST 30 DAYS: No - Related Data Allergies/Adverse Reactions: No Known Allergies Allergy (Verified 02/25/19 17:55) Past Medical History - General Information source: Patient - Social History Smoking Status: Never Smoker Chew tobacco use (# tins/day): No Frequency of alcohol use: None Drug Abuse: None Lives with: Family Family History: Reviewed & Not Pertinent, Other - unknown Patient has suicidal ideation: No Patient has homicidal ideation: No Endocrine Medical History: Reports: Hx Diabetes Mellitus Type 2 Renal/ Medical History: Denies: Hx Peritoneal Dialysis Psychiatric Medical History: Reports: Hx Bipolar Disorder - Immunizations Immunizations up to date: Yes Hx Diphtheria, Pertussis, Tetanus Vaccination: Yes Review of Systems - Review of Systems Constitutional: No symptoms reported EENT: No symptoms reported Cardiovascular: No symptoms reported Respiratory: No symptoms reported Gastrointestinal: See HPI Genitourinary: See HPI Female Genitourinary: See HPI Musculoskeletal: No symptoms reported Skin: No symptoms reported Hematologic/Lymphatic: No symptoms reported Neurological/Psychological: No symptoms reported Physical Exam - Vital signs Vitals: Temp Pulse Resp BP Pulse Ox 97.9 F 111 H 18 143/78 H 98 02/25/19 17:22 02/25/19 17:22 02/25/19 17:22 02/25/19 17:22 02/25/19 17:22 - Notes Notes: GENERAL: Alert, interacts well. No acute distress. HEAD: Normocephalic, atraumatic. EYES: Pupils equal, round, and reactive to light. Extraocular movements intact. ENT: Oral mucosa moist, tongue midline. Oropharynx unremarkable. Airway patent. NECK: Full range of motion. Supple. Trachea midline. LUNGS: Clear to auscultation bilaterally, no wheezes, rales, or rhonchi. No respiratory distress. HEART: Regular rate and rhythm. No murmur ABDOMEN: Very mild tenderness in the left lower almost pelvic region. No guarding, no rigidity, remaining abdomen completely benign. Bowel sounds present throughout. GENITOURINARY: Deferred EXTREMITIES: Moves all 4 extremities spontaneously. No edema, normal radial and dorsalis pedis pulses bilaterally. No cyanosis. BACK: no cervical, thoracic, lumbar midline tenderness. No saddle anesthesia, normal distal neurovascular exam. Moves all extremities in full range of motion. NEUROLOGICAL: Alert and oriented x3. Normal speech. Cranial nerves II through XII grossly intact. PSYCH: Normal affect, normal mood. SKIN: Warm, dry, normal turgor. No rashes or lesions noted. Course - Re-evaluation Re-evalutation: Patient smiling, well-appearing, talkative, her abdomen is soft and benign except for some pain in the left lower pelvic region on exam. She does have a leukocytosis at 17,000, however based on her abdominal exam I still have a very low suspicion of acute appendicitis. Chemistry unremarkable, urinalysis unre markable. negative. Discussed different possibilities with patient. Decision was made to perform ultrasound to rule out pelvic abnormality, I recommended pelvic exam but patient refused. Gonorrhea and chlamydia tested by urine and were negative. She denies vaginal discharge. Ultrasound showing some fluid but otherwise unremarkable. Could be a popped cyst, nonspecific. Patient without any complaints on reevaluation. Discussed possibilities, also discussed how this could be bowel, I still have a low suspicion of acute abdomen based on her evaluation. I discussed expectations, follow-up, and strict return precautions. Patient states appreciation and agreement, she also requests a gastroenterology referral, this was provided. - Vital Signs Vital signs: Temp Pulse Resp BP Pulse Ox 97.9 F 70 16 115/63 98 02/26/19 00:56 02/26/19 00:56 02/26/19 00:56 02/26/19 00:56 02/26/19 00:56 - Laboratory Result Diagrams: 02/25/19 18:27 02/25/19 18:27 Laboratory results interpreted by me: 02/25/19 02/25/19 18:27 18:27 WBC 17.1 H RDW 14.1 H Absolute Neuts (auto) 12.3 H Urine Urobilinogen 2.0 H Discharge - Discharge Clinical Impression: Pelvic pain, Lower abdominal pain Condition: Stable Disposition: HOME, SELF-CARE Additional Instructions: Your work-up and evaluation are most consistent with an ovarian cyst that popped. This is not definite but I suspect this was the cause of your pain. As result I suspect your pain will simply resolve. You can take Bentyl as needed for intermittent abdominal pains, you can take [id number] Tylenol and ibuprofen along with this. Follow-up with gastroenterology for additional evaluation and management. Come back if you worsen including severe worsening pain, vomiting, fever, or any other concerning or worsening symptoms. Prescriptions: Dicyclomine HCl [Bentyl 20 mg Tablet] 20 mg PO QID PRN #20 tablet PRN Reason: Referrals: MAREK BURDEN MD [ACTIVE STAFF] - Follow up as needed
--- NOTE | 2019-02-26 00:03 | RADIOLOGY REPORT (SQ) ---
EXAM DESCRIPTION: [facility]: US PELVIS TRANSVAGINAL CLINICAL HISTORY: 23 years Female left pelvic pain TECHNIQUE: Endovaginal pelvic ultrasound was performed. COMPARISON: None. FINDINGS: Uterus: 7.1 x 4.8 x 3.5 cm, with 13 mm endometrial stripe. No uterine masses. Right ovary: 2.4 x 1.8 x 1.5 cm. Normal vascular flow on Doppler. Left ovary: 2.7 x 1.6 x 1.9 cm. Normal vascular flow on Doppler. Cervix is 2.2 cm long, closed Small amount of anechoic fluid is noted in the cul-de-sac, likely physiologic. IMPRESSION: 1. Thickened endometrium, suggesting secretory phase. Please correlate with LMP date. No uterine masses. 2. Normal ovaries.
[2019-02-26 00:59] VITALS: BP 115/63
== END 2019-02-26 00:56 | disposition home or self-care (01) ==
LOC: ER 17:19
DX: R10.2 Pelvic and perineal pain (principal); R10.33 Periumbilical pain; D72.829 Elevated white blood cell count, unspecified; E11.9 Type 2 diabetes mellitus without complications
CPT/HCPCS: 36415; 76830; 80053; 81001; 83690; 84703; 85025; 87491; 87591; 93976; 99284